=== PATIENT | female | born 2000 | race African-American/Black ===

== ENCOUNTER 2024-01-13 14:02 | Emergency (ER) | payer OTHER ==
[~2024-01-13] VITALS: Ht 162.6 cm; Wt 73.7 kg
[2024-01-13 16:38] LABS: HEMATOCRIT 43.7 % (36.0-47.0); HEMOGLOBIN 14.5 g/dl (12.0-15.5); MEAN CORPUSCULAR HEMOGLOBIN 29.7 pg (27.0-33.0); MEAN CORPUSCULAR HGB CONC 33.2 g/dl (32.0-36.5); MEAN CORPUSCULAR VOLUME 89.4 fl (80.0-96.0); PLATELET COUNT, AUTOMATED 293 10^3/uL (150-450); RED BLOOD COUNT 4.89 10^6/uL (4.00-5.40); WHITE BLOOD COUNT 6.1 10^3/uL (4.0-10.0)
[2024-01-13] MEDS ORDERED: ISOVUE-370 76% 100ML VIAL As Ordered ONE (16:53)
[2024-01-13] MEDS: NS 1,000 ML IV ONE (16:55)
[2024-01-13] MEDS: KETOROLAC 30 MG/ML 1ML VIAL IV ONE (17:36)
[2024-01-13 18:11] VITALS: BP 136/82; TEMP 97.9; O2SAT 100
== END 2024-01-13 18:11 | disposition home or self-care (01) ==
LOC: M ED 14:31
DX: S19.9XXA Unspecified injury of neck, initial encounter (principal); Y92.9 Unspecified place or not applicable; Y93.9 Activity, unspecified; Y99.9 Unspecified external cause status; Y04.8XXA Assault by other bodily force, initial encounter
CPT/HCPCS: 70491; 80047; 84702; 85027; 87880; 96361; 96374; 99283; J1885; Q9967

== ENCOUNTER 2024-01-30 20:59 | Emergency (ER) | payer OTHER ==
[~2024-01-30] VITALS: Ht 162.6 cm; Wt 72.1 kg
[2024-01-30] MEDS: ACETAMINOPHEN 325 MG TAB PO ONE (22:04)
[2024-01-30 23:09] VITALS: BP 122/77; TEMP 99.6; O2SAT 98
== END 2024-01-30 23:07 | disposition home or self-care (01) ==
LOC: M ED 20:59
DX: J09.X9 Influenza due to identified novel influenza A virus with other manifestations (principal); F10.10 Alcohol abuse, uncomplicated